=== PATIENT | female | born 1990 | race Caucasian/White ===

== ENCOUNTER 2016-08-20 08:22 | Observation (INO) | payer MEDICAID ==
[~2016-08-20] VITALS: Ht 162.6 cm; Wt 71.8 kg
--- NOTE | ~2016-08-20 | CN ---
PATIENT NAME:ROBSON RENE MEDICAL RECORD: [id number] : 88 LOCATION:[id number] ADMIT DATE: 08/20/16 ACCOUNT: [id number] CONSULTING PHYSICIAN: KEVYN JORGE MD REFERRING PHYSICIAN: ONELIA FONTANEZ DO DATE OF CONSULTATION: 08/20/2016 Cardiology Consultation DIAGNOSES: 1. Bradycardia. 2. Dizziness. 3. [place] toxicity. HISTORY OF PRESENT ILLNESS: Mrs. Rene has a history of bipolar disorder. She is on 300 mg of lithium a day, 100 in the morning and 200 mg in the evening. She presents with dizziness, she was found to have sinus bradycardia in the 40-43 range, no heart block, only the sinus bradycardia. She has been told in the past that she has a low heart rate. She is not hypotensive with this. PHYSICAL EXAMINATION: GENERAL APPEARANCE: Well-nourished, well-developed, appears stated age. Level of distress, comfortable. PSYCHIATRIC: Mental status, alert, normal affect. Orientation, oriented to time, place and person. EYES: Lids and conjunctiva, noninjected. No discharge, no pallor. ENT: Lips, teeth, gums, normal dentition. Oropharynx, no cyanosis, no pallor. NECK: Carotid arteries, bilateral normal upstroke, no bruits, no thrills. JUGULAR VEINS: No jugular venous pressure or distention. CERVICAL LYMPH NODES: Nontender, nonenlarged. THYROID: Not enlarged. Nontender. No nodules. LUNGS: Respiratory effort, unlabored. CHEST: Normal curvature. No thoracic deformity. No chest wall tenderness. Percussion, resonant. Auscultation, clear. No wheezes, no rales, no rhonchi. CARDIOVASCULAR: Precordial exam, nondisplaced. No heaves or pericardial thrills. Rate and rhythm, regular. Heart sounds, normal S1, normal S2. No S3, no gallop, no rub. Systolic murmur, not heard. Diastolic murmur, not heard. EXTREMITIES: No cyanosis, no edema. Peripheral pulses, full and equal in all extremities, except as noted. No bruits appreciated. ABDOMEN: Soft, nondistended. Normal aorta. No bruit. Nontender. No masses. Liver, nontender, no hepatomegaly. Spleen, nontender, no splenomegaly. MUSCULOSKELETAL: No joint tenderness. No joint swelling. No erythema. NEUROLOGICAL: Normal gait, normal strength, normal tone. SKIN: Warm and dry. REVIEW OF SYSTEMS: The patient reports easy bruising but reports no swollen glands. The patient reports no fever, no night sweats, no significant weight gain, no significant weight loss. No significant exercise tolerance. The patient reports no dry eyes, no irritation, no vision change. Patient reports no difficulty hearing and no ear pain. Patient reports no frequent nose bleeds or nose and sinus problems. Patient reports on arm pain on exertion. No shortness of breath while lying down. No history of heart murmur. Patient reports no cough, no wheezing or coughing up blood. Patient reports no abdominal pain, no vomiting. Normal appetite. No diarrhea and not vomiting blood. No nausea and no constipation. Patient reports no incontinence. No CONSULT REPORT [id number] COPPEGDEROBSON difficulty urinating. No hematuria. No increased frequency. Patient reports no muscle aches. No weakness, no arthralgias, no back pain. No swelling of the extremities. Patient reports no abnormal mole, no jaundice, no rashes. Reports no loss of consciousness. No weakness and no numbness. No seizures, dizziness, or headaches. The patient reports no depression, no sleep disturbance, feeling safe in a relationship and no alcohol abuse. Patient reports on fatigue. Reports no runny nose or sinus pressure. No itching, no hives, and no frequent sneezing. OVERALL IMPRESSION: Baseline bradycardia, worsening with her lithium toxicity. At this time, the only real treatment is to decrease her lithium dose, would suggest 100 mg b.i.d. Hopefully, this will control her bipolar disorder and not gives such a bradycardic response. TRANSINT:[id number] Voice Confirmation ID: [id number] DOCUMENT ID: [id number] KEVYN JORGE MD CC: [id number] DICTATION DATE: 08/20/161121 CABLE INSTALLER REPAIRER HELPER: 08/20/162048 [facility] [place] [id number] [place] [id number]
[2016-08-20 08:59] LABS: BASOPHILS 0.4 % (0.0-2.0); EOSINOPHILS 2.8 % (0-7); HEMATOCRIT 45.6 % (36.0-48.0); HEMOGLOBIN 14.9 g/dL (12-16); IMMATURE GRANULOCYTES 0.1 % (0-5); LYMPHOCYTES 30.1 % (15-50); MCH 33.1 pg (26.0-34.0); MCHC 32.7 g/dL (31.0-37.0); MCV 101.3 fL (80.0-100.0); MEAN PLATELET VOLUME 9.4 fL (7.4-10.4); MONOCYTES 7.3 % (2-11); NEUTROPHILS 59.3 % (40-80); PLATELET COUNT 225 10x3/uL (130-400); RDW 12.7 % (11.5-14.5); WBC 9.4 10x3/uL (4.8-10.8)
[2016-08-20 09:01] LABS: APPEARANCE CLEAR (CLEAR); BILIRUBIN NEGATIVE (NEGATIVE); COLOR STRAW (YELLOW); GLUCOSE NEGATIVE (NEGATIVE); KETONE NEGATIVE (NEGATIVE); LEUKOCYTE ESTERASE NEGATIVE (NEGATIVE); NITRITE NEGATIVE (NEGATIVE); PROTEIN NEGATIVE (NEGATIVE); SPECIFIC GRAVITY 1.005 (1.005-1.020); UROBILINOGEN NORMAL (NORMAL)
[2016-08-20 09:10] LABS: CALC OSMOLALITY 277 mosm/kg (275-300); CALCIUM 9.8 mg/dL (8.5-10.1); CARBON DIOXIDE 29.2 mmol/L (21.0-32.0); CHLORIDE - SERUM 104 mmol/L (98-107); CREATININE - SERUM 0.7 mg/dL (0.6-1.3); GLUCOSE 105 mg/dL (74-106); POTASSIUM - SERUM 4.6 mmol/L (3.5-5.1); SODIUM 140 mmol/L (136-145); UREA NITROGEN 11 mg/dL (7-18); eGFR NON AFRICAN AMERICAN > 90 mL/min (90-120)
[2016-08-20 09:38] LABS: ALBUMIN 4.1 g/dL (3.4-5.0); ALKALINE PHOSPHATASE 61 U/L (46-116); ALT (SGPT) 80 U/L (10-68); CALC OSMOLALITY 277 mosm/kg (275-300); CALCIUM 9.8 mg/dL (8.5-10.1); CARBON DIOXIDE 26.7 mmol/L (21.0-32.0); CHLORIDE - SERUM 105 mmol/L (98-107); CREATININE - SERUM 0.7 mg/dL (0.6-1.3); GLUCOSE 105 mg/dL (74-106); POTASSIUM - SERUM 4.6 mmol/L (3.5-5.1); PROTEIN - SERUM 7.6 g/dL (6.4-8.2); SODIUM 140 mmol/L (136-145); UREA NITROGEN 11 mg/dL (7-18); eGFR NON AFRICAN AMERICAN > 90 mL/min (90-120)
[2016-08-20 09:42] LABS: CREATINE KINASE 92 UL (21-215); TROPONIN-I < 0.017 ng/mL (0.000-0.060)
[2016-08-20 12:19] LABS: HCG URINE NEGATIVE (NEGATIVE)
[2016-08-20 12:28] LABS: UDS - AMPHET NEGATIVE QUAL (NEGATIVE); UDS - BARB NEGATIVE QUAL (NEGATIVE); UDS - BENZO NEGATIVE QUAL (NEGATIVE); UDS - COCAINE NEGATIVE QUAL (NEGATIVE); UDS - METH NEGATIVE QUAL (NEGATIVE); UDS - OPIATE NEGATIVE QUAL (NEGATIVE); UDS - PCP NEGATIVE QUAL (NEGATIVE); UDS - THC NEGATIVE QUAL (NEGATIVE)
[2016-08-20 21:37] VITALS: BP 166/72; Ht 162.6 cm; Wt 71.8 kg
[2016-08-20 21:45] VITALS: BP 166/72
[2016-08-20] MEDS ORDERED: LITHIUM CARBON300 MG PO ×2 (21:47→21:48)
--- NOTE | 2016-08-20 21:47 | NUR ---
pt arrived on unit at 2054. alert and oriented. c/o abd pain AND HEAD ACHE HR IN THE 40'S BUT WILL DIP INTO UPPER 30'S. 38 IS LOWEST RATE SEEN. B/P 166/72. TEMP 98.0. O2 AT 97% ON ROOM AIR. SEE ADMISSION ASSESSMENT FOR FULL DETAILS.
[2016-08-20] MEDS ORDERED: CELEXA20 MG PO (21:48)
[2016-08-20 22:00] VITALS: BP 138/70
[2016-08-20 22:30] VITALS: BP 118/61
[2016-08-20 23:00] VITALS: BP 112/69
--- NOTE | 2016-08-20 23:00 | NUR ---
reassessment completed. see flowsheet for full details.
[2016-08-21] VITALS (7 sets, daily range): BP systolic 95–106; BP diastolic 42–60
--- NOTE | 2016-08-21 01:28 | NUR ---
pt c/o nausea and light headedness. hr 36. called dr merida. new orders received.
--- NOTE | 2016-08-21 03:00 | NUR ---
REASSESSMENT COMPLETED. SEE FLOWSHEET FOR FULL DETAILS.
--- NOTE | 2016-08-21 05:00 | NUR ---
PT C/O HEAD ACHE AGAIN. STATES THAT IT IS WORSE EVERY TIME SHE WAKES UP. WILL CONTINUE TO MONITOR AND ADMINISTER PRN MEDICATION ORDERED.
[2016-08-21 05:42] LABS: CALC OSMOLALITY 279 mosm/kg (275-300); CALCIUM 8.5 mg/dL (8.5-10.1); CARBON DIOXIDE 29.6 mmol/L (21.0-32.0); CHLORIDE - SERUM 105 mmol/L (98-107); CREATININE - SERUM 0.7 mg/dL (0.6-1.3); GLUCOSE 99 mg/dL (74-106); POTASSIUM - SERUM 4.3 mmol/L (3.5-5.1); SODIUM 141 mmol/L (136-145); UREA NITROGEN 10 mg/dL (7-18); eGFR NON AFRICAN AMERICAN > 90 mL/min (90-120)
--- NOTE | 2016-08-21 08:11 | NUR ---
PT C/O H/A. FIORCET GIVEN. RATES 8 ON SCALE 1 TO 10.
--- NOTE | 2016-08-21 09:32 | NUR ---
DISCUSSED DC W/PT. PT STATES THAT SHE IS GOING TO CALL FOR A RIDE HOME.
--- NOTE | 2016-08-21 11:08 | NUR ---
PATIENT HAS DISCHARGE ORDER.PATIENT HAS BEEN DISCHARGED HOME AND ACCORDING TO NURSE HAS NO DISCHARGE NEEDS.
--- NOTE | 2016-08-22 08:01 | HP ---
PATIENT: ROBSON DOMINGUEZ MEDICAL RECORD: [id number] ACCOUNT: [id number] LOCATION:[facility] : 89 ADMISSION DATE: 08/20/16 HISTORY AND PHYSICAL EXAMINATION Admission History and Physical HISTORY OF PRESENT ILLNESS: A 26-year-old female presented to the Emergency Room with bloating sensation, abdominal pain. She has a history of bipolar disorder. She is a difficult historian. She is followed by [facility] for her lithium and [facility] where she sees a nurse practitioner. She is on lithium and citalopram. She reports she takes extra lithium when she gets anxious. Upon evaluation by the ER physician, she was found to be bradycardic and lithium toxic. PAST SURGICAL HISTORY: Tonsillectomy. REVIEW OF SYSTEMS: HEENT: No cephalgia, visual changes, tinnitus, epistaxis or dysphagia. CARDIOVASCULAR: Denies chest pain or palpitations. Denies shortness of breath. PULMONARY: Denies hemoptysis, denies night sweats. GASTROINTESTINAL: Denies hematemesis, hematochezia or melena. GENITOURINARY: Denies dysuria. MUSCULOSKELETAL: No acute changes. ENDOCRINE: Denies polyuria, polydipsia, polyphagia. PSYCHIATRIC: Admits history of bipolar disorder. PHYSICAL EXAMINATION: VITAL SIGNS: Temperature 97.4, heart rate 46, respirations 20, blood pressure 183/83, O2 sats 100% room air. GENERAL: Alert and oriented, no present distress. HEENT: Head is normocephalic, atraumatic. Eyes: Pupils equal, round, reactive to light and accommodation. Extraocular muscles intact. Conjunctiva was not injected. Ears: Canals patent, TMs are intact. Nose: Nares patent without drainage. Throat: No erythema, no drainage, no exudates. NECK: Supple. No lymphadenopathy, no JVD. HEART: Regular, bradycardic. LUNGS: Clear to auscultation bilaterally. Breathing is nonlabored. ABDOMEN: Soft, nontender. Bowel sounds all 4 quadrants. EXTREMITIES: Present times 4. Trace edema. NEUROLOGIC: No focal deficits. Ambulates independently. DIAGNOSTIC DATA: EKG shows marked sinus bradycardia with a rate of 43. CT head was obtained ER. No significant abnormalities. Verbal report on lithium significantly elevated. ASSESSMENT AND PLAN: 1. Acute lithium toxicity, no thought of harm to herself or others. She states she has been taking an extra 1 on days where she is more anxious. She has been doing this for some time. Again, this is an unintentional lithium toxicity. 2. Sinus bradycardia. The patient is admitted to the ICU monitoring. Cardiology consulted, Dr. You has been consulted, cautious IV fluids, monitor electrolytes. TRANSINT:[id number] Voice Confirmation ID: [id number] DOCUMENT ID: [id number] HISTORY AND PHYSICAL [id number] COPPEDGE,ONELIA CARROLL DO at 0801 CC: [id number] DICTATION DATE: 08/20/16 164 BRANCH LIBRARY CLERK: 08/20/162054 DIS IN 08/21/16 [place] [id number] [place] [address]
== END 2016-08-21 10:43 | disposition home or self-care (01) ==
LOC: D.ER 08:22 → D.CVICU 18:39 → D.CLR 18:39 → OBSVTIME 18:41 → D.CVICU 21:23
PROVIDERS: Emergency Medicine; ADMIT Family Medicine
DX: R00.1 Bradycardia, unspecified (principal); T43.595A Adverse effect of other antipsychotics and neuroleptics, initial encounter

== ENCOUNTER 2016-10-24 14:40 | Emergency (ER) | payer MEDICAID ==
[2016-08-20 21:37] VITALS: BMI 27.1
[~2016-10-24 14:40] MED LIST: CELEXA20 MG PO; LITHIUM CARBON300 MG PO
[2016-10-24 15:34] LABS: BASOPHILS 0.5 % (0-2); EOSINOPHILS 4.6 % (0-7); HEMATOCRIT 46.7 % (36.0-48.0); HEMOGLOBIN 15.3 g/dL (12-16); IMMATURE GRANULOCYTES 0.2 % (0-5); LYMPHOCYTES 36.6 % (15-50); MCH 32.5 pg (26.0-34.0); MCHC 32.8 g/dL (31.0-37.0); MCV 99.2 fL (80.0-100.0); MEAN PLATELET VOLUME 8.8 fL (7.4-10.4); NEUTROPHILS 48.1 % (40-80); PLATELET COUNT 261 10x3/uL (130-400); RBC 4.71 10x6/uL (4.00-5.40); RDW 13.1 % (11.5-14.5); WBC 8.5 10x3/uL (4.8-10.8)
[2016-10-24 16:05] LABS: ALKALINE PHOSPHATASE 63 U/L (46-116); ALT (SGPT) 30 U/L (10-68); BILIRUBIN - TOTAL 0.47 mg/dL (0.2-1.3); CALC OSMOLALITY 276 mosm/kg (275-300); CALCIUM 9.2 mg/dL (8.5-10.1); CARBON DIOXIDE 26.1 mmol/L (21.0-32.0); CHLORIDE - SERUM 104 mmol/L (98-107); CREATININE - SERUM 0.7 mg/dL (0.6-1.3); GLUCOSE 90 mg/dL (74-106); POTASSIUM - SERUM 3.3 mmol/L (3.5-5.1); PROTEIN - SERUM 7.8 g/dL (6.4-8.2); SODIUM 139 mmol/L (136-145); UREA NITROGEN 10 mg/dL (7-18); eGFR NON AFRICAN AMERICAN > 90 mL/min (90-120)
[2016-10-24 16:13] LABS: APPEARANCE CLEAR (CLEAR); BILIRUBIN NEGATIVE (NEGATIVE); COLOR YELLOW (YELLOW); GLUCOSE NEGATIVE (NEGATIVE); KETONE NEGATIVE (NEGATIVE); LEUKOCYTE ESTERASE NEGATIVE (NEGATIVE); NITRITE NEGATIVE (NEGATIVE); PROTEIN NEGATIVE (NEGATIVE); UROBILINOGEN NORMAL (NORMAL)
[2016-10-24 16:14] LABS: BACTERIA FEW /hpf (NONE SEEN); EPITHELIAL CELLS 0-5 /hpf (0-5); RED CELLS - URINE 0-5 /hpf (0-5); WHITE CELLS - URINE OCC /hpf (0-5)
[2016-10-24 16:20] LABS: HCG SERUM NEGATIVE (NEGATIVE)
== END 2016-10-24 17:14 | disposition home or self-care (01) ==
LOC: D.ER 14:40
PROVIDERS: Emergency Medicine
DX: N94.0 Mittelschmerz (principal); F17.200 Nicotine dependence, unspecified, uncomplicated

== ENCOUNTER 2016-11-04 18:57 | Emergency (ER) | payer MEDICAID ==
[2016-08-20 21:37] VITALS: BMI 27.1
== END 2016-11-04 21:30 | disposition home or self-care (01) ==
LOC: D.ER 18:57
DX: S61.207A Unspecified open wound of left little finger without damage to nail, initial encounter (principal); F17.200 Nicotine dependence, unspecified, uncomplicated; N94.0 Mittelschmerz